=== PATIENT | female | born 1965 | race Hispanic/Latino ===

== ENCOUNTER → 2017-09-17 | Outpatient (CLI) | payer OTHER ==
--- NOTE | 2017-09-17 09:17 | Diagnostic Imaging Report ---
PROCEDURE:X-RAY UPPER GI SERIES WITH AIR CONTRAST COMPARISON:None. INDICATIONS:GERD FINDINGS:The patient was given air crystals, thick barium, and thin barium to drink in upright and prone positions. Multiple images of the esophagus, stomach and duodenum were obtained. The esophagus is normal in appearance without evidence of dysmotility, mucosal irregularity or stricture. There is a hiatal hernia present. Gastroesophageal reflux is noted. Polypoid filling defect is noted in the mid body of the stomach near the greater curvature. This is noted on multiple views. The duodenum is normal without evidence of intrinsic mucosal or extrinsic abnormality. There is no evidence of ulcer or fold thickening. Fluoroscopy time: 1.4 minutes. Total dose: 55.32 mGy CONCLUSION: 1. Hiatal hernia with gastroesophageal reflux. 2. Persistent polypoid filling defect in the body of the stomach. Sander Rand D.O. Dictated by: Sander Rand D.O. on 09/17/2017 at 9:19 Electronically approved by: Sander Rand D.O. on 09/17/2017 at 9:19
== END ==
LOC: DX 07:33
PROVIDERS: ATTEND Family Medicine
DX: K21.9 Gastro-esophageal reflux disease without esophagitis (principal)
CPT/HCPCS: 74246

== ENCOUNTER 2017-11-20 16:22 | Outpatient (RCR) | payer OTHER | END 2017-11-23 | LOC: PT 16:22 | PROVIDERS: ATTEND Neurological Surgery | DX: M43.17 Spondylolisthesis, lumbosacral region (principal); M53.87 Other specified dorsopathies, lumbosacral region; M62.81 Muscle weakness (generalized) ==

== ENCOUNTER 2017-12-19 15:00 | Outpatient (RCR) | payer OTHER | END 2017-12-24 | LOC: PT 15:00 | PROVIDERS: ATTEND Neurological Surgery | DX: M43.17 Spondylolisthesis, lumbosacral region (principal); M53.86 Other specified dorsopathies, lumbar region; M62.81 Muscle weakness (generalized) | CPT/HCPCS: 97139 ==